=== PATIENT | female | born 1965 | race Caucasian/White ===

== ENCOUNTER 2022-02-13 09:14 | Day surgery (SDC) | payer BC ==
[~2022-02-13] VITALS: Ht 175.3 cm; Wt 101.9 kg
[2022-02-13 10:56] VITALS: BP 139/89; PULSE 100; TEMP 98.1
[2022-02-13] MEDS ORDERED: POTASSIUM CHLORIDE ×2 (11:13)
[2022-02-13] MEDS ORDERED: DIPHENOXYLATE/ATROPI (11:14)
[2022-02-13] MEDS ORDERED: ALIGN PROBIOTIC (11:15)
[2022-02-13] MEDS ORDERED: CRESTOR5 MG PO (11:15)
[2022-02-13 11:18] LABS: CALCIUM 10.2 mg/dL (8.4-10.2); CREATININE, serum 1.02 mg/dL (0.57-1.11); POTASSIUM 3.5 mmol/L (3.5-4.5)
[2022-02-13 12:15] VITALS: BP 113/75; PULSE 86
[2022-02-13 12:30] VITALS: BP 112/86; PULSE 82; TEMP 97.6
--- NOTE | 2022-02-13 12:36 | NUR ---
1215 - PT arrives and was settled by Bhavya NAQVI; written report then obatined. 1220 - is speaking w/ PT. 1230 - VSS. PT has finished snack and drink; call hinojosa remains within reach and non-slip socks remain on. PT expressed desire to be discharged.
[2022-02-13 12:45] VITALS: BP 112/87; PULSE 75
--- NOTE | 2022-02-13 12:54 | NUR ---
1245 - VSS. IV discontinued. Catheter tip intact and pressure bandage applied; no redness or swelling noted. DC instructions and educational material reviewed w/ PT who verbalized understanding and signed the realted paperwork. Questions answered to PT satisfaction. PT refused RN assistance changing into personal clothes; call hinojosa remains within reach, non-slip socks are on and visitor remains present.
--- NOTE | 2022-02-13 13:06 | NUR ---
1255 - PT ambulates to bathroom w/o difficulty; then is dismissed from endo via wheelchair to PT entrence by Ayla NAQVI. PT's has DC packet and PT personal belonings; PT was transferred into the care of her , who is driving private truck.
== END 2022-02-13 13:05 | disposition home or self-care (01) ==
LOC: SDCO 09:14
PROVIDERS: Internal Medicine Gastroenterology
DX: D12.4 Benign neoplasm of descending colon (principal); K62.89 Other specified diseases of anus and rectum; K64.1 Second degree hemorrhoids; K63.89 Other specified diseases of intestine; K52.9 Noninfective gastroenteritis and colitis, unspecified; E87.6 Hypokalemia
CPT/HCPCS: J2704; J7030